=== PATIENT | male | born 1955 | race African-American/Black ===

== ENCOUNTER 2016-05-01 08:21 | Emergency (ER) | payer OTHER ==
[~2016-05-01] VITALS: Ht 165.1 cm; Wt 90.3 kg
[2016-05-01 08:41] VITALS: BP 164/84
[2016-05-01] MEDS ORDERED: GLIPIZIDE-METF1 EAC2 PO (08:54)
[2016-05-01] MEDS ORDERED: ENALAPRIL MALEA10 MG ORAL (08:54)
[2016-05-01] MEDS ORDERED: ASPIR-LOW81 MG ORAL (08:54)
[2016-05-01] MEDS ORDERED: ATORVASTATIN CA20 MG ORAL (08:54)
[2016-05-01] MEDS ORDERED: JANUVIA25 MG ORAL (08:54)
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
[2016-05-01] MEDS ORDERED: Oxycodone/Acetaminophen 5-325 ORAL ONE (09:00)
[2016-05-01] MEDS ORDERED: TdaP Vaccine 0.5ml Syr IM ONE (09:00)
[2016-05-01] MEDS ORDERED: Bacitracin Oint UD TOPIC ONE (09:00)
[2016-05-01] MEDS ORDERED: Bacitracin Oint 15gm Tube TOPIC ONE (09:05)
[2016-05-01] MEDS ORDERED: BACITRACIN15 GM TOPIC (09:29)
[2016-05-01] MEDS ORDERED: IBUPROFEN600 MG ORAL (09:29)
[2016-05-01] MEDS ORDERED: NORCO 5-325 TA1 EACH ORAL (09:29)
[2016-05-01 10:10] VITALS: BP 164/84
== END 2016-05-01 10:10 | disposition home or self-care (01) ==
LOC: EMR 09:00
DX: T20.20XA Burn of second degree of head, face, and neck, unspecified site, initial encounter (principal); E11.9 Type 2 diabetes mellitus without complications; I10 Essential (primary) hypertension; Z23 Encounter for immunization; X02.0XXA Exposure to flames in controlled fire in building or structure, initial encounter; Y92.9 Unspecified place or not applicable; Y99.8 Other external cause status
CPT/HCPCS: 82962; 90471; 90715; 99284

== ENCOUNTER 2016-05-05 15:04 | Emergency (ER) | payer OTHER ==
[~2016-05-05] VITALS: Ht 165.1 cm; Wt 90.3 kg
[~2016-05-05 15:04] MED LIST: ASPIR-LOW81 MG ORAL; ATORVASTATIN CA20 MG ORAL; BACITRACIN15 GM TOPIC; ENALAPRIL MALEA10 MG ORAL; GLIPIZIDE-METF1 EAC2 PO; IBUPROFEN600 MG ORAL; JANUVIA25 MG ORAL; NORCO 5-325 TA1 EACH ORAL
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
[2016-05-05 16:18] VITALS: BP 165/99
== END 2016-05-05 16:20 | disposition home or self-care (01) ==
LOC: EMR 16:00
DX: T20.26XD Burn of second degree of forehead and cheek, subsequent encounter (principal); T20.24XD Burn of second degree of nose (septum), subsequent encounter; W40.1XXD Explosion of explosive gases, subsequent encounter
CPT/HCPCS: 99281